=== PATIENT | female | born 1995 | race Caucasian/White ===

== ENCOUNTER 2018-03-11 02:43 | Observation (INO) | payer SELFPAY ==
[~2018-03-11] VITALS: Ht 170.2 cm; Wt 72.7 kg
[2018-03-11 03:28] LABS: BASO % 0.1 % (0.0-2.0); EOS # 0.1 (0.0-0.7); EOS % 1.2 % (0-4.0); GRAN # 5.7 (1.4-6.5); GRAN % 68.3 % (42.2-75.2); HEMOGLOBIN 12.1 g/dl (12.5-16.0); LYMPH # 1.9 (1.2-3.4); LYMPH % 23.3 % (20.0-51.0); MEAN CELL VOLUME 87 fl (80.0-100.0); MEAN CORPUSCULAR HEMOGLOBIN 29 pg (27.0-31.0); MEAN CORPUSCULAR HGB CONC 34 g/dl (33.0-37.0); MEAN PLATELET VOLUME 10.8 fl (7.4-10.4); MONO # 0.6 (0.1-0.6); PLATELET COUNT 363 K/mm3 (130-400); RED BLOOD COUNT 4.11 M/mm3 (4.10-5.30); REDCELL DISTRIBUTION WIDTH-CV 12.9 % (11.5-14.5)
[2018-03-11 03:29] LABS: HEMATOCRIT 35.8 % (37.0-47.0)
[2018-03-11 03:36] LABS: ALBUMIN 4.1 gm/dL (3.5-5.0); BILIRUBIN,TOTAL 0.3 mg/dL (0.0-1.0); C-REACTIVE PROTEIN 3.8 mg/dL (0.0-0.9); CALCIUM 9.2 mg/dL (8.4-10.2); CREATININE, serum 0.64 mg/dL (0.52-1.25); POTASSIUM 4.2 mmol/L (3.4-5.0); TOTAL PROTEIN 7.7 gm/dL (6.4-8.2)
[2018-03-11 03:51] LABS: COLLECTION METHOD CLEAN CATCH
[2018-03-11 04:02] LABS: MUCOUS Present /lpf; PH 6 (5-8); URINE APPEARANCE Hazy; URINE BACTERIA None Seen /hpf; URINE BILIRUBIN Negative (NEGATIVE); URINE BLOOD Negative (NEGATIVE); URINE COLOR Yellow; URINE GLUCOSE Negative (NEGATIVE); URINE KETONE Negative (NEGATIVE); URINE LEUKOCYTE ESTERASE Trace (NEGATIVE); URINE NITRATE Negative (NEGATIVE); URINE PROTEIN(semi-quant) 1+ (NEGATIVE); URINE RBC 0-2 /hpf; URINE UROBILINOGEN >=4.0 mg/dL (NEGATIVE)
[2018-03-11 08:58] LABS: TRICYCLIC ANTIDEPRESS URINE NEGATIVE
[2018-03-11 11:06] VITALS: BP 107/54; PULSE 60; TEMP 98
[2018-03-11 15:16] LABS: TSH w REFLEX 6.29 uIU/mL (0.465-4.680)
[2018-03-11 15:41] VITALS: BP 106/65; PULSE 63; TEMP 98.1
[2018-03-11 19:24] VITALS: BP 102/63; PULSE 67; TEMP 98.5
[2018-03-11 23:27] VITALS: BP 97/58; PULSE 53; TEMP 97.7
[2018-03-12 03:42] VITALS: BP 102/57; PULSE 85; TEMP 98.5
[2018-03-12 07:00] VITALS: BP 113/82; PULSE 68; TEMP 98.2
[2018-03-12 08:18] VITALS: BP 113/82; PULSE 68; TEMP 98.2
[2018-03-12 10:30] VITALS: BP 128/58; PULSE 59; TEMP 97.7
[2018-03-12 11:02] VITALS: BP 129/89; PULSE 61
[2018-03-12 13:02] LABS: ALBUMIN 3.2 gm/dL (3.5-5.0); BASO % 0.2 % (0.0-2.0); BILIRUBIN,TOTAL 0.2 mg/dL (0.0-1.0); CALCIUM 8.6 mg/dL (8.4-10.2); CREATININE, serum 0.61 mg/dL (0.52-1.25); EOS # 0.1 (0.0-0.7); EOS % 1.4 % (0-4.0); GRAN # 3.4 (1.4-6.5); GRAN % 67.1 % (42.2-75.2); HEMOGLOBIN 10.2 g/dl (12.5-16.0); LYMPH # 1.3 (1.2-3.4); LYMPH % 25.5 % (20.0-51.0); MEAN CELL VOLUME 88 fl (80.0-100.0); MEAN CORPUSCULAR HEMOGLOBIN 29 pg (27.0-31.0); MEAN CORPUSCULAR HGB CONC 33 g/dl (33.0-37.0); MEAN PLATELET VOLUME 10.7 fl (7.4-10.4); MONO # 0.3 (0.1-0.6); MONO % 5.4 % (1.7-9.3); POTASSIUM 4.5 mmol/L (3.4-5.0); RED BLOOD COUNT 3.53 M/mm3 (4.10-5.30); REDCELL DISTRIBUTION WIDTH-CV 12.7 % (11.5-14.5); TOTAL PROTEIN 6.1 gm/dL (6.4-8.2)
[2018-03-12 13:05] LABS: PLATELET COUNT 251 K/mm3 (130-400)
[2018-03-12] MEDS ORDERED: DOXYCYCLINE 10100 MG PO (16:27)
[2018-03-12] MEDS ORDERED: ZOFRAN ODT4 MG PO (16:28)
[2018-03-12] MEDS ORDERED: ULTRAM 50MG TAB50 MG PO (16:31)
[2018-03-12 16:54] LABS: BAND 6 % (0-10); LYMPHOCYTE 25 % (20.0-51.0); NEUTROPHILS 64 % (42.0-75.2); PLATELET ESTIMATE NORMAL (NORMAL)
== END 2018-03-12 18:00 | disposition home or self-care (01) ==
LOC: COL.ER 02:43 → MEDICAL 07:24
PROVIDERS: Emergency Medicine; Hospitalist; Physician Assistant
DX: D12.4 Benign neoplasm of descending colon (principal); D12.5 Benign neoplasm of sigmoid colon; D12.8 Benign neoplasm of rectum; K64.0 First degree hemorrhoids; K92.1 Melena; E03.9 Hypothyroidism, unspecified; D64.9 Anemia, unspecified; F12.10 Cannabis abuse, uncomplicated; F15.10 Other stimulant abuse, uncomplicated; R16.2 Hepatomegaly with splenomegaly, not elsewhere classified; F17.210 Nicotine dependence, cigarettes, uncomplicated; Z83.71 Family history of colonic polyps
CPT/HCPCS: A4216; G0378; J0171; J0694; J0696; J1170; J2405; J2704; J2765; J3010; J7030; J7050; J7120; Q9967